=== PATIENT | male | born 1945 | race Caucasian/White ===

== ENCOUNTER → 2020-12-15 18:45 | Outpatient (ROUT) | payer MEDICARE, SELFPAY ==
[2020-12-15 19:31] LABS: Add Manual Diff / Slide Review NO; Basophils Absolute Auto 0 /uL (0-100); Basophils Percent Auto 0.4 % (0-2); Eosinophils Absolute Auto 100 /uL (0-450); Eosinophils Percent Auto 0.9 % (2-4); Hematocrit 40.3 % (41-53); Hemoglobin 13.5 g/dL (13.5-17.5); Lymphocytes Absolute Auto 2000 /uL (1100-4500); Lymphocytes Percent Auto 30.5 % (25-40); Mean Corpuscular HGB Conc 33.4 % (30-36); Mean Corpuscular Hemoglobin 30.7 PG (26-34); Mean Corpuscular Volume 92.1 fL (80-100); Monocytes Absolute Auto 400 /uL (0-900); Monocytes Percent Auto 6.8 % (3-14); Neutrophils Absolute Auto 4000 /uL (1500-7000); Neutrophils Percent Auto 61.4 % (50-75); Platelet Count 238 X10^3/uL (150-400); Red Blood Cell Count 4.38 X10^6/uL (4.5-5.9); Red Cell Distribution Width 13.8 % (11.6-14.8); White Blood Cell Count 6.5 X10^3/uL (4.5-11.0)
[2020-12-15 19:34] LABS: HEMOLYSIS < 15 (0-50); Iron 94 ug/dL (49-181)
[2020-12-15 19:40] LABS: Alanine Aminotransferase 39 IU/L (<50); Albumin 4.8 g/dL (3.5-5.0); Albumin Globulin Ratio 1.7 (1.0-2.8); Alkaline Phosphatase 63 U/L (38-126); Aspartate Aminotransferase 37 IU/L (17-59); BUN Creatinine Ratio 20.3 (6-22); Bilirubin Total 1.2 mg/dL (0.2-1.3); Blood Urea Nitrogen 32 mg/dL (9-20); Calcium 10.3 mg/dL (8.4-10.2); Carbon Dioxide 30 mmol/L (22-32); Chloride 102 mmol/L (98-107); Cholesterol 232 mg/dL (140-199); Estimated Glomerular Filt Rate 42.9 mL/min (>60); Globulin 2.9 g/dL (1.7-4.1); Glucose 95 mg/dL (80-110); HDL Cholesterol 61 mg/dL (40-60); HEMOLYSIS < 15 (0-50); Phosphorous 3.9 mg/dL (2.3-3.7); Potassium 5.1 mmol/L (3.4-5.1); Sodium 138 mmol/L (137-145); Total Protein 7.7 g/dL (6.3-8.2); Triglycerides 404 mg/dL (35-150)
[2020-12-15 19:47] LABS: Percent Iron Saturation 27 % (20-50); Total Iron Binding Capacity 344 ug/dL (261-462); Transferrin 264 mg/dL (206-381)
[2020-12-15 19:52] LABS: Vitamin D 25 Hydroxy (D3) 35.9 ng/mL (30.0-100.0)
[2020-12-15 20:05] LABS: TSH w/ Reflex to FT4 3.39 uIU/mL (0.47-4.68)
[2020-12-15 20:15] LABS: Ferritin 54 ng/mL (18-464)
[2020-12-17 08:27] LABS: Parathyroid Hormone Int 65 pg/mL (15-65)
== END ==
PROVIDERS: Visit Provider Internal Medicine
DX: R53.83 Other fatigue (principal); N18.30 Chronic kidney disease, stage 3 unspecified; E78.2 Mixed hyperlipidemia
CPT/HCPCS: 80053; 80061; 82306; 82728; 83540; 83550; 83970; 84100; 84443; 85025

== ENCOUNTER → 2022-08-17 15:28 | Outpatient (CLI) | payer MEDICARE, SELFPAY ==
--- NOTE | 2022-08-17 15:32 | DI.RAD.S_ITS ---
PROCEDURE: XR CHEST 2V INDICATIONS: cough TECHNIQUE: 2 views of the chest were acquired. COMPARISON: None. FINDINGS: Surgical changes and devices: None. Lungs and pleura: Lungs are clear. No pleural effusions or pneumothorax. Elevated right hemidiaphragm. Mediastinum: Mediastinal contours are normal. Heart size is normal. Bones and chest wall: No suspicious bony abnormalities. Soft tissues appear unremarkable. IMPRESSION: Elevation of the right hemidiaphragm; no source for cough identified radiographically. Dictated by: Braden Ayala [facility] Interpreted: Jluis Min MD on 08/17/2022 at 16:16 Transcribed by: KATI on 08/17/2022 at 16:17 Approved by: Jluis Min M.D. on 08/17/2022 at 22:22
== END ==
PROVIDERS: PCP Internal Medicine; Referring Provider Internal Medicine; Visit Provider Internal Medicine
DX: J20.9 Acute bronchitis, unspecified (principal)
CPT/HCPCS: 71046

== ENCOUNTER → 2022-10-04 09:43 | Outpatient (CLI) | payer MEDICARE, SELFPAY ==
--- NOTE | 2022-10-04 09:45 | DI.ECHO.S_ITS ---
[facility]---------+ [facility] +---------+ : : [address] : [address] [place] : : : : [id number] : : : : Phone: [phone]+ Echocardiogram Report + + :Name: RANJANA BUSTOS Study Date: 10/04/2022 Height: 69 in : :[facility] ReadingLocation: Weight: 215 lb: : Gender: Male BSA: 2.1 m2 : :: 1945 Age: 77 yrs : :Reason For Study: Shortness of breath : :Ordering Physician: QUIN, : :BARBARA Performed By: Netta Oropeza : :Referring: BARBARA TSAI : + + Interpretation Summary 1) Normal left ventricular thickness, size, wall motion, and systolic function (EF 60-65%). 2) Mildly enlarged right ventricular size with normal function. 3) No significant valvular abnormalities. 4) There is a trivial pericardial effusion noted, located next to right atrium. 5) No prior Echo available for comparison. Procedure: A two-dimensional transthoracic echocardiogram with color flow and Doppler was performed. Left Ventricle: The left ventricle is normal in size and wall thickness. The ejection fraction is estimated to be 60-65%. Left ventricular systolic function appears normal without focal wall motion abnormalities. Diastolic parameters suggest a relaxation abnormality of the left ventricle, consistent with probable normal filling pressures. Right Ventricle: The right ventricle is mildly dilated. The right ventricular systolic function is normal. Atria: The left atrium is moderately dilated. The right atrium is moderately dilated. Doppler interrogation and injection of saline echo contrast shows no evidence for an interatrial shunt. Mitral Valve: The mitral valve leaflets appear normal. There is no evidence of stenosis, fluttering, or prolapse. The mitral valve leaflets are mildly calcified. There is trace mitral regurgitation. Aortic Valve: The aortic valve is grossly normal. The aortic valve opens well. There is no aortic valve stenosis. No aortic regurgitation is present. Pulmonic Valve: The pulmonic valve leaflets are thin and pliable; valve motion is normal. Great Vessels: The ascending aorta is mildly enlarged. The IVC is of normal diameter and collapses greater than 50% with a sniff. This suggests a low right atrial pressure of 3 mm Hg. Pericardium/ Pleura There is a trivial pericardial effusion noted. There is no pleural effusion. MMode/2D Measurements & Calculations LVIDd: 3.9 cm LVOT diam: 1.9 cm LVIDs: 2.4 cm Ao root diam: 3.1 cm FS: 38.5 % asc Aorta Diam: 3.8 cm EPSS: 0.50 cm IVSd: 1.5 cm LVPWd: 1.3 cm LV carcamo. diameter/BSA (cm/m^2): 1.8 LV sys. diameter/BSA (cm/m^2): 1.1 LA dimension: 4.7 cm RA long axis: 5.4 cm LA A2 area: 23.1 cm2 RA area: 21.6 cm2 LA A4 area: 25.8 cm2 RA vol: 74.0 ml LA length (vol): 5.7 cm RA : 34.7 ml/m2 LA vol: 89.1 ml LA vol index: 41.8 ml/m2 LVLs ap4: 6.2 cm RV Mid_phl: 3.2 cm TAPSE_phl: 3.2 cm Doppler Measurements & Calculations Ao V2 max: 138.0 cm/sec LVOT Max Elliot: 145.0 cm/sec Ao V2 mean: 97.8 cm/sec LV V1 max P.4 mmHg Ao max P.0 mmHg LV V1 VTI: 30.6 cm Ao mean P.0 mmHg ZACKARY(I,D): 3.0 cm2 Ao V2 VTI: 29.1 cm ZACKARY(V,D): 3.0 cm2 sev ratio: 1.1 ZACKARY indexed to BSA (cm^2/m^2): 1.4 MV E max elliot: 103.0 cm/sec PA V2 max: 133.0 cm/sec MV A max elliot: 130.0 cm/sec PA V2 mean: 85.9 cm/sec MV E/A: 0.79 PA mean P.0 mmHg Med Peak E' Elliot: 4.8 cm/sec E/E' med: 21.3 Lat Peak E' Elliot: 5.9 cm/sec E/E' lat: 17.5 E/e' average: 19.4 MV dec time: 0.25 sec MVA(VTI): 2.6 cm2 MV V2 mean: 89.2 cm/sec SV(LVOT): 86.8 ml MV mean P.0 mmHg MV V2 VTI: 33.4 cm AV VR_phl: 1.1 ZACKARY(VTI)/BSA_phl: 1.4 Reading Physician:04:06 PM
--- NOTE | 2022-10-04 09:45 | DI.NM.S_ITS ---
PROCEDURE: NM BAY PERF SPECT R&S PHARM Rest and pharmacological stress myocardial perfusion SPECT with gated imaging and ejection fraction RADIOPHARMACEUTICAL: 12.1 mCi Tc-99m tetrafosmin IV at rest and 24.1 mCi Tc-99m tetrafosmin IV at peak effect of pharmacological stress. Xzz-vcq-rljvloie was performed. INDICATIONS: SOB TECHNIQUE: Radiopharmaceutical was injected at peak stress test, and also at rest. SPECT images were obtained. SPECT myocardial perfusion images were displayed in short axis, horizontal long axis, and vertical long axis views. Gated images were reviewed using FireBlade software. COMPARISON: None. CARDIAC STRESS: A pharmacologic stress test was performed under the supervision of an attending staff, using an infusion of lexiscan 0.4mg IV X1. Hemodynamic data: There is normal blood pressure and heart rate response to pharmacologic stress. Symptoms: The patient denied anginal chest pain. Aminophylline: none EKG: No diagnostic changes of ischemia; no ectopy. FINDINGS: Raw data: There is good myocardial uptake of radiotracer. No significant motion artifacts. Aumd-ve-lewyk ratio is 0.33 (normal is less than 0.38 for tetrafosmin tracer). Left ventricle function: Gated images demonstrate normal left ventricular wall thickening. No segmental wall motion abnormalities. No transient ischemic dilation; TID is 1.1 (normal less than 1.3). Left ventricle resting end diastolic volume is 69 mL. Left ventricle stress ejection fraction is 71%; normal range is above 45%. Myocardial perfusion: There is normal distribution of activity in the right and left ventricular myocardium on stress prone imaging No fixed or reversible perfusion defects. IMPRESSION: Low risk, normal pharmaceutical nuclear stress test 1) No perfusion evidence of ischemia or infarction. 2) Normal left ventricular size, wall motion, and systolic function (EF post stress 71%0. 3) No ST changes with lexiscan. 4) No angina during the study. 5) No prior nuclear stress test available for comparsison. Dictated by: Junior Iyer MD on 10/05/2022 at 13:10 Approved by: Junior Iyer MD on 10/05/2022 at 13:12
[2022-10-04 11:29] LABS: COVID19 -Nasal RAPID Negative (Negative)
== END ==
PROVIDERS: PCP Internal Medicine; Referring Provider Internal Medicine; Visit Provider Internal Medicine
DX: R06.02 Shortness of breath (principal); I77.89 Other specified disorders of arteries and arterioles; Z20.822 Contact with and (suspected) exposure to COVID-19
CPT/HCPCS: 78452; 87635; 93017; 93306; A9502; J2785

== ENCOUNTER → 2022-12-28 10:54 | Outpatient (CLI) | payer MEDICARE, SELFPAY ==
--- NOTE | 2022-12-29 14:59 | PM.PFT.1 ---
Pulmonary Function Test Referral & Results Date Patient Seen: 12/28/22 Results: The spirometry demonstrates an FVC of 2.59 L which is 66% of predicted. The FEV1 was measured at 1.76 L which is 63% of predicted. The FEV1/FVC ratio was 68 which is 94% of predicted. Following the administration of bronchodilator there was 11% improvement in FEV1 and a 37% improvement in FEF 25-75%. Lung volumes show an SVC of 3.0 L which is 70% of predicted. The diffusing capacity was measured at 21.72 which is 70% of predicted. No hemoglobin value was provided, so no correction for potential anemia could be made, if appropriate. The maximum voluntary ventilation was reduced Interpretation: This study demonstrates probably nnrz-rj-itnymdnd obstructive lung disease based on reduction FEV1 although FEV1/FVC ratio is relatively preserved. There is evidence of some benefit following bronchodilator administration particularly small airway flow as demonstrated by the improvement in the FEF 25-75% as above There is a itkp-tj-wjpqcayk reduction in lung volumes suggesting inta-mp-vsfownyd restrictive lung disease is also present. This may explain some of the abnormality in the FEV1 above There is also vjxz-lp-rohqmpyi reduction diffusing capacity suggesting element of disease at the capillary alveolar level Clinical correlation suggested
== END ==
PROVIDERS: PCP Internal Medicine; Referring Provider Internal Medicine; Visit Provider Internal Medicine
DX: R06.02 Shortness of breath (principal); Z87.891 Personal history of nicotine dependence; J98.8 Other specified respiratory disorders
CPT/HCPCS: 94060; 94726; 94729

== ENCOUNTER → 2023-05-04 17:01 | Outpatient (CLI) | payer MEDICARE, SELFPAY ==
[2023-05-04 17:32] LABS: Hematocrit 40.8 % (41-53); Hemoglobin 13.6 g/dL (13.5-17.5); Mean Corpuscular HGB Conc 33.4 % (30-36); Mean Corpuscular Hemoglobin 30.3 PG (26-34); Mean Corpuscular Volume 90.6 fL (80-100); Platelet Count 210 X10^3/uL (150-400); Red Cell Distribution Width 14.1 % (11.6-14.8); White Blood Cell Count 6.8 X10^3/uL (4.5-11.0)
[2023-05-04 17:55] LABS: Alanine Aminotransferase 36 IU/L (<50); Albumin 4.5 g/dL (3.5-5.0); Albumin Globulin Ratio 1.4 (1.0-2.8); Alkaline Phosphatase 65 U/L (38-126); Aspartate Aminotransferase 39 IU/L (17-59); BUN Creatinine Ratio 23.8 (6-22); Bilirubin Total 0.9 mg/dL (0.2-1.3); Blood Urea Nitrogen 34 mg/dL (9-20); Calcium 9.6 mg/dL (8.4-10.2); Carbon Dioxide 23 mmol/L (22-32); Chloride 105 mmol/L (98-107); Cholesterol 267 mg/dL (140-199); Estimated Glomerular Filt Rate 50 mL/min (>60); Globulin 3.3 g/dL (1.7-4.1); Glucose 102 mg/dL (80-110); HDL Cholesterol 60 mg/dL (40-60); HEMOLYSIS 17 (0-50); Potassium 4.5 mmol/L (3.4-5.1); Sodium 139 mmol/L (137-145); Total Protein 7.8 g/dL (6.3-8.2); Triglycerides 407 mg/dL (35-150)
[2023-05-04 18:25] LABS: Prostate Specific Antigen 0.362 ng/mL (0.10-4.00)
[2023-05-04 18:56] LABS: TSH w/ Reflex to FT4 0.14 uIU/mL (0.47-4.68)
[2023-05-04 20:33] LABS: Free T4, Direct Thyroxine 1.19 ng/dL (0.78-2.19)
[2023-05-06 07:03] LABS: Calcium 9.7 mg/dL (8.6-10.2); Parathyroid Hormone, Intact 72 pg/mL (15-65)
== END ==
PROVIDERS: PCP Internal Medicine; Referring Provider Internal Medicine; Visit Provider Internal Medicine
DX: E78.2 Mixed hyperlipidemia (principal); R03.1 Nonspecific low blood-pressure reading; R03.0 Elevated blood-pressure reading, without diagnosis of hypertension; N18.32 Chronic kidney disease, stage 3b; Z85.72 Personal history of non-Hodgkin lymphomas; N40.0 Benign prostatic hyperplasia without lower urinary tract symptoms
CPT/HCPCS: 36415; 80053; 80061; 82310; 83970; 84153; 84439; 84443; 85027

== ENCOUNTER → 2023-11-06 16:25 | Outpatient (CLI) | payer MEDICARE, OTHER, SELFPAY ==
[2023-11-06 17:09] LABS: Hematocrit 41.4 % (41-53); Hemoglobin 13.8 g/dL (13.5-17.5); Mean Corpuscular HGB Conc 33.3 % (30-36); Mean Corpuscular Hemoglobin 30.2 PG (26-34); Mean Corpuscular Volume 90.9 fL (80-100); Platelet Count 205 X10^3/uL (150-400); Red Blood Cell Count 4.55 X10^6/uL (4.5-5.9); Red Cell Distribution Width 13.7 % (11.6-14.8)
[2023-11-06 17:59] LABS: Aspartate Aminotransferase 38 IU/L (17-59); BUN Creatinine Ratio 28.2 (6-22); Blood Urea Nitrogen 44 mg/dL (9-20); Calcium 10.2 mg/dL (8.4-10.2); Carbon Dioxide 24 mmol/L (22-32); Chloride 104 mmol/L (98-107); Cholesterol 251 mg/dL (140-199); Estimated Glomerular Filt Rate 45 mL/min (>60); Glucose 98 mg/dL (80-110); HDL Cholesterol 64 mg/dL (40-60); LDL Cholesterol Calculated 123 mg/dL (<100); Potassium 4.7 mmol/L (3.4-5.1); Sodium 138 mmol/L (137-145); Triglycerides 322 mg/dL (35-150)
[2023-11-06 18:10] LABS: HEMOLYSIS 85 (0-50)
== END ==
LOC: LAB 16:27
PROVIDERS: PCP Internal Medicine; Referring Provider Internal Medicine; Visit Provider Internal Medicine
DX: N18.32 Chronic kidney disease, stage 3b (principal); E78.2 Mixed hyperlipidemia
CPT/HCPCS: 36415; 80048; 80061; 84450; 85027